=== PATIENT | male | born 1960 | race Caucasian/White ===

== ENCOUNTER 2016-09-09 08:32 | Emergency (ER) | payer OTHER ==
[~2016-09-09] VITALS: Ht 185.4 cm; Wt 90.7 kg
--- NOTE | 2016-09-09 08:46 | NUR ---
PT TAKEN TO CT
--- NOTE | 2016-09-09 09:30 | NUR ---
Patient discharged to home in stable condition. Written and verbal after care instructions given. Patient verbalizes understanding of instruction. Pt ambulatory with a steady gait.
[2016-09-09 09:43] VITALS: BP 141/88
== END 2016-09-09 10:16 | disposition home or self-care (01) ==
LOC: ER 08:34
DX: S00.11XA Contusion of right eyelid and periocular area, initial encounter (principal); F32.9 Major depressive disorder, single episode, unspecified; F41.9 Anxiety disorder, unspecified; Y08.89XA Assault by other specified means, initial encounter; Y93.89 Activity, other specified; Y92.89 Other specified places as the place of occurrence of the external cause; Y99.8 Other external cause status
CPT/HCPCS: 70480-TC; A4606; Z7610